=== PATIENT | female | born 1980 | race Caucasian/White ===

== ENCOUNTER 2016-06-27 15:56 | Emergency (ER) | payer OTHER ==
[~2016-06-27] VITALS: Ht 162.6 cm; Wt 81.7 kg
[~2016-06-27 15:56] MED LIST: ACETAMINOPHEN325 M1 PO; AMITRIPTYLINE H50 M3; APAP/CODEINE ELI5 M1 OR; CIPRO250 M1 PO; COLACE100 MG; DILAUDID2 M1 PO; DULCOLAX5 MG PO; ERYTHROMYCIN250 MG PO; EXCEDRIN CAPLE1 EACH PO; FIORICET 50-321 EACH; FLONASE 0.05%50 MCG NS; HYDROCODON-ACE1 EAC7 PO; HYDROCODON-ACE1 EACH PO; IBUPROFEN 200200 M1 PO; MS CONTIN15 MG; NORCO 5-325 TA1 EACH PO; OSELB75 PO; OXYCODONE-APAP1 EAC4; PERCOCET 5-3251 EACH PO; PREDNISONE PO; PYRIDIUM200 MG PO; TOPAMAX25 M1; TOPAMAX50 MG PO; XANAX 0.5 MG0.5 M1; XANAX 0.5 MG0.5 M1 PO; ZOFRAN ODT4 MG PO; ZOFRAN4 MG PO; [UNRECOGNIZED DRUG - OTHER] PO
[2016-06-27 16:03] VITALS: BP 142/106
[2016-06-27] MEDS ORDERED: BACTROBAN CREAM30 G1 TOP (16:40)
[2016-06-27] MEDS ORDERED: PREDNISONE 20 M20 MG PO (16:40)
[2016-06-27] MEDS ORDERED: HIBICLENS120 ML TP (16:40)
[2016-06-27] MEDS ORDERED: CLEOCIN HCL150 MG PO (16:40)
== END 2016-06-27 17:01 | disposition home or self-care (01) ==
LOC: ER 15:56
DX: T65.6X1A Toxic effect of paints and dyes, not elsewhere classified, accidental (unintentional), initial encounter (principal); L01.09 Other impetigo; L02.211 Cutaneous abscess of abdominal wall; Y92.89 Other specified places as the place of occurrence of the external cause; Z88.8 Allergy status to other drugs, medicaments and biological substances; Z88.1 Allergy status to other antibiotic agents; Z88.0 Allergy status to penicillin; F17.210 Nicotine dependence, cigarettes, uncomplicated

== ENCOUNTER 2016-06-28 22:35 | Emergency (ER) | payer OTHER ==
[~2016-06-28] VITALS: Ht 162.6 cm; Wt 81.7 kg
--- NOTE | ~2016-06-28 | EKG ---
[address] [address] ELECTROCARDIOGRAM REPORT Name: TIFFANIE MEEK Room #: DEP Missy#: [id number] Admission: 06/28/16 Attend Phys: Discharge: 06/29/16 Date of : 82 Report #: [id number] THIS REPORT FOR: //name// [facility] ED Test Date: 2016-06-28 Test Time: 22:41:15 Pat Name: TIFFANIE MEEK Department: Room: Gender: F [employer]ist: DEJON : 1980 Requested By: Tomas Storm Order Number: [id number] MD: Tee Rodriguez Measurements Intervals Gardner Rate: 74 P: 32 IN: 152 QRS: 40 QRSD: 99 T: 7 QT: 387 QTc: 430 Interpretive Statements Sinus rhythm No previous ECG available for comparison Electronically Signed On 06-29-2016 12:35:28 CDT by Tee Rodriguez [email or web address] <ELECTRONICALLY SIGNED> By: Tee Rodriguez MD 06/29/16 1235 2241 2241 Tee Rodriguez MD /EPI
[~2016-06-28 22:35] MED LIST changes: +BACTROBAN CREAM30 G1 TOP; +CLEOCIN HCL150 MG PO; +HIBICLENS120 ML TP; +PREDNISONE 20 M20 MG PO
[2016-06-28 23:08] LABS: ANION GAP 4 mmol/L (7-16); BUN 13 mg/dL (7-18); CALCIUM 9.1 mg/dL (8.5-10.1); CHLORIDE 107 mmol/L (98-107); CO2 27 mmol/L (21-32); CREATININE 0.7 mg/dL (0.6-1.3); GLUCOSE 97 mg/dL (70-99); POTASSIUM 3.6 mmol/L (3.5-5.1); SODIUM 138 mmol/L (136-145)
[2016-06-28 23:16] LABS: TROPONIN-I < 0.04 ng/mL (<0.04-0.07)
[2016-06-29] MEDS ORDERED: NAPROSYN500 MG PO (00:08)
[2016-06-29 00:38] VITALS: BP 105/76
== END 2016-06-29 00:40 | disposition home or self-care (01) ==
LOC: ER 22:35
PROVIDERS: Nurse Practitioner
DX: R07.89 Other chest pain (principal); M94.0 Chondrocostal junction syndrome [Tietze]; F41.9 Anxiety disorder, unspecified; Z88.6 Allergy status to analgesic agent; Z88.1 Allergy status to other antibiotic agents; Z88.0 Allergy status to penicillin; F17.210 Nicotine dependence, cigarettes, uncomplicated